=== PATIENT | female | born 1990 | race Caucasian/White ===

== ENCOUNTER 2017-03-19 15:51 | Outpatient (CLI) | payer BC, OTHER ==
[~2017-03-19] VITALS: Ht 154.9 cm; Wt 61.8 kg
[~2017-03-19 15:51] MED LIST: ANTIBIOTIC; ANTIFUNGAL CREAM; MOTRIN 600600 MG/TAB PO; NORCO 325 MG-51 TAB PO; PRENATAL
[2017-03-19 16:11] VITALS: BP 106/69; PULSE 95; TEMP 98.1
[2017-03-19 16:53] LABS: PH 6 (5-8); SQUAMOUS EPITHELIAL 0-2 /hpf; URINE APPEARANCE Cloudy; URINE BACTERIA Rare /hpf; URINE BILIRUBIN Negative (NEGATIVE); URINE BLOOD 3+ (NEGATIVE); URINE COLOR Amber; URINE GLUCOSE Negative (NEGATIVE); URINE KETONE Trace (NEGATIVE); URINE RBC >50 /hpf; URINE WBC >50 /hpf
[2017-03-19 17:00] VITALS: BP 95/67; PULSE 93
[2017-03-19 19:35] VITALS: BP 100/66; PULSE 94
== END 2017-03-19 20:10 | disposition home or self-care (01) ==
LOC: LDRO 15:51
PROVIDERS: Obstetrics & Gynecology
DX: O46.93 Antepartum hemorrhage, unspecified, third trimester (principal); Z3A.32 32 weeks gestation of pregnancy
CPT/HCPCS: J3105

== ENCOUNTER 2017-04-28 22:35 | Inpatient (IN) | payer OTHER ==
[~2017-04-28] VITALS: Ht 154.9 cm; Wt 65.5 kg
[2017-04-28 22:42] VITALS: BP 120/80; PULSE 93; TEMP 97.9
[2017-04-28 23:00] VITALS: BP 120/80; PULSE 93; TEMP 97.9
[2017-04-28 23:20] VITALS: BP 120/80; PULSE 93; TEMP 97.9
[2017-04-28 23:36] LABS: BASO % 0.3 % (0.0-2.0); EOS # 0.1 (0.0-0.7); EOS % 1.1 % (0-4.0); GRAN # 8.1 (1.4-6.5); GRAN % 69.3 % (42.2-75.2); HEMATOCRIT 37.4 % (37.0-47.0); HEMOGLOBIN 12.3 g/dl (12.5-16.0); LYMPH # 2.4 (1.2-3.4); LYMPH % 20.9 % (20.0-51.0); MEAN CELL VOLUME 81 fl (80.0-100.0); MEAN CORPUSCULAR HEMOGLOBIN 27 pg (27.0-31.0); MEAN CORPUSCULAR HGB CONC 33 g/dl (33.0-37.0); MEAN PLATELET VOLUME 10.5 fl (7.4-10.4); MONO # 0.9 (0.1-0.6); MONO % 7.7 % (1.7-9.3); PLATELET COUNT 236 K/mm3 (130-400); RED BLOOD COUNT 4.64 M/mm3 (4.10-5.30); REDCELL DISTRIBUTION WIDTH-CV 15.2 % (11.5-14.5); WHITE BLOOD COUNT 11.6 K/mm3 (4.8-10.8)
[2017-04-29] VITALS (19 sets, daily range): BP systolic 96–124; BP diastolic 54–77; PULSE 81–112; TEMP 97.2–98.5
[2017-04-29 07:47] LABS: HEMATOCRIT 31.5 % (37.0-47.0); HEMOGLOBIN 10.1 g/dl (12.5-16.0)
[2017-04-30 07:20] VITALS: BP 103/68; PULSE 103
[2017-04-30] MEDS ORDERED: IBU800 M1 PO (08:39)
[2017-04-30] MEDS ORDERED: NORCO 325 MG-51 TAB PO (08:40)
[2017-04-30] MEDS ORDERED: BENADRYL50 MG PO (08:40)
[2017-04-30 16:59] VITALS: BP 113/70; PULSE 110
[2017-04-30 20:00] VITALS: BP 107/69; PULSE 101; TEMP 98.3
[2017-05-01 07:00] VITALS: BP 103/62; PULSE 84; TEMP 98.1
[2017-05-01 20:20] VITALS: BP 117/81; PULSE 91; TEMP 98.2
[2017-05-02 07:45] VITALS: BP 115/77; PULSE 73
== END 2017-05-02 12:50 | disposition home or self-care (01) | DRG 765 ==
LOC: LDRO 22:35 → LDR 23:00 → OB 23:00
PROVIDERS: Obstetrics & Gynecology
PROC: 10D00Z1 Extraction of Products of Conception, Low, Open Approach (ICD-10-PCS; principal; 2017-04-28)
DX: O34.211 Maternal care for low transverse scar from previous cesarean delivery (principal); O86.0 Infection of obstetric surgical wound; L03.311 Cellulitis of abdominal wall; N85.8 Other specified noninflammatory disorders of uterus; Z3A.38 38 weeks gestation of pregnancy; Z37.0 Single live birth
CPT/HCPCS: J0690; J1885; J2175; J2250; J2270; J2370; J2405; J2590; J7120